=== PATIENT | male | born 1965 | race African-American/Black ===

== ENCOUNTER 2019-05-16 14:31 | Emergency (ER) | payer OTHER ==
[2019-05-16 15:20] VITALS: BP 112/78
--- NOTE | 2019-05-16 16:34 | UC ---
Skin Complaint HPI - HPI Summary HPI Summary: 54-year-old male comes in with a chief complaint of bleeding from a pacemaker wound site. Patient has a pacemaker AICD. He had the battery replaced on May 07, 2019. This is the third incision same site. Patient has keloid skin and has scar tissue build up at the area. After the battery placement patient developed a hematoma at the incision site. This is all done done in [place]. Patient reports the Them overnight because of the hematoma. The wound was covered with adhesive glue. Today patient noticed some blood on his shirt at the site. He has been working as an industrial electrician. Feels well otherwise. He reports that the hematoma today is much smaller than it was then right after the procedure. No fevers or chills. - History of Current Complaint Chief Complaint: UCSkin Time Seen by Provider: 05/16/19 16:09 Stated Complaint: BLEEDING ALONG SURGERY SITE Pain Intensity: 0 - Allergy/Home Medications Allergies/Adverse Reactions: Allergies Allergy/AdvReac Type Severity Reaction Status Date / Time No Known Allergies Allergy Verified 05/16/19 15:20 Home Medications: Home Medications Aspirin 81 mg CHEW TAB* [Aspirin Low Dose TAB*] 81 mg PO DAILY 05/16/19 [ History Confirmed 05/16/19] Atorvastatin* [Lipitor*] 80 mg PO DAILY 05/16/19 [History Confirmed 05/16/19] Clopidogrel TAB* [Plavix TAB*] 75 mg PO DAILY 05/16/19 [History Confirmed ] Lisinopril [Lisinopril 30 MG-] 30 mg PO DAILY 05/16/19 [History Confirmed ] Metoprolol Succinate 50 mg PO DAILY 05/16/19 [History Confirmed 05/16/19] Oxycodone HCl/Acetaminophen [Percocet 5-325 mg Tablet] 1 each PO Q6H PRN [History Confirmed 05/16/19] PMH/Surg Hx/FS Hx/Imm Hx Previously Healthy: Yes - AICD, ON PLAVIX AND ASPIRIN Cardiovascular History: Hypertension - Surgical History Surgical History: Yes Surgery Procedure, Year, and Place: pacer/aicd, femur repair - Family History Known Family History: Positive: Non-Contributory - Social History Alcohol Use: Daily Substance Use Type: None Smoking Status (MU): Never Smoked Tobacco Review of Systems All Other Systems Reviewed And Are Negative: Yes Constitutional: Positive: Negative Skin: Positive: Other - SEE HPI Eyes: Positive: Negative ENT: Positive: Negative Respiratory: Positive: Negative Cardiovascular: Positive: Negative Gastrointestinal: Positive: Negative Motor: Positive: Negative Neurovascular: Positive: Negative Musculoskeletal: Positive: Negative Neurological: Positive: Negative Psychological: Positive: Negative Is Patient Immunocompromised?: No Physical Exam Triage Information Reviewed: Yes Appearance: Well-Appearing, No Pain Distress, Well-Nourished Vital Signs: Initial Vital Signs Temp 99.4 F 05/16/19 15:14 Pulse 60 05/16/19 15:14 Resp 16 05/16/19 15:14 BP 112/78 05/16/19 15:14 Pulse Ox 100 05/16/19 15:14 Vital Signs Reviewed: Yes Eye Exam: Normal Neck: Positive: Supple Respiratory: Positive: No respiratory distress Musculoskeletal: Positive: Strength Intact, ROM Intact Neurological: Positive: Alert Psychological: Positive: Age Appropriate Behavior Skin: Positive: Other - There is subcutaneous swelling in the left upper chest consistent with hematoma. There is an incision site that is covered with adhesive glue. When I clean the area I found a site of blood seeping through the glue. I applied more adhesive glue. Course/Dx - Course Course Of Treatment: I glued the area of the blood leakage. On reevaluation is no further bleeding. We discussed that if this bleeds again he should use gauze and direct pressure. He should contact his surgeon to discuss with them about the bleeding. If the bleeding is worse at all he needs to be seen in the emergency department going by ambulance if needed. - Diagnoses Provider Diagnosis: Bleeding from open wound of chest wall Discharge - Sign-Out/Discharge Documenting (check all that apply): Patient Departure All imaging exams completed and their final reports reviewed: No Studies - Discharge Plan Condition: Stable Disposition: HOME Patient Education Materials: Skin Adhesive Care (ED) Referrals: [facility] [Outside] [facility] [Outside] Additional Instructions: FOLLOW UP WITH YOUR DOCTOR. APPLY GAUZE AND DIRECT PRESSURE WITH ANY BLEEDING. GO TO THE EMERGENCY DEPARTMENT IF YOUR CONDITION WORSENS OR ANY QUESTIONS OR CONCERNS. - Billing Disposition and Condition Condition: STABLE Disposition: Home
== END 2019-05-16 16:50 | disposition home or self-care (01) ==
LOC: UCEAST 14:31
DX: T81.31XA Disruption of external operation (surgical) wound, not elsewhere classified, initial encounter (principal); Y71.0 Diagnostic and monitoring cardiovascular devices associated with adverse incidents; Y83.8 Other surgical procedures as the cause of abnormal reaction of the patient, or of later complication, without mention of misadventure at the time of the procedure; Z79.82 Long term (current) use of aspirin; Z79.01 Long term (current) use of anticoagulants
CPT/HCPCS: 99201; G0463

== ENCOUNTER 2022-08-24 18:52 | Observation (INO) ==
[2022-08-24 19:34] LABS: ABS Eosinophils 0.1 10^3/ul (0-0.6); ABS Lymphocytes 2.3 10^3/ul (1.0-4.8); ABS Monocytes 0.6 10^3/ul (0-0.8); ABS Neutrophils 3.4 10^3/ul (1.5-7.7); Eosinophil % 1.4 %; Hematocrit 46 % (42-52); Mean Corpuscular HGB Conc 33 g/dL (31-36); Mean Corpuscular Hemoglobin 30 pg (27-31); Mean Corpuscular Volume 92 fL (80-94); Nucleated Red Blood Cells % 0.5; Platelet Count 149 10^3/uL (150-450); Red Blood Count 5.01 10^6 /uL (4.18-5.48); Red Cell Distribution Width 14 % (10-15); White Blood Count 6.5 10^3/uL (3.5-10.8)
[2022-08-24 20:10] LABS: Albumin 4.4 g/dL (3.2-5.2); Albumin/Globulin Ratio 1.2 (1-3); Calcium 9.9 mg/dL (8.6-10.3); Globulin 3.7 g/dL (2-4); Potassium 4.3 mmol/L (3.5-5.0); Total Bilirubin 0.9 mg/dL (0.2-1.0); Total Protein 8.1 g/dL (6.4-8.9); eGFR CKD-EPI 57.9 (>60)
[2022-08-24 20:55] LABS: Urine Benzodiazepine Screen None Detected (None Detect); Urine Cannabinoids Screen Presumptive Positive (None Detect); Urine Opiates Screen None Detected (None Detect)
[2022-08-24 20:58] LABS: High Sensitivity Troponin 1 Hr 48 pg/mL (<20)
[2022-08-24 21:00] LABS: Urine Appearance Clear; Urine Bilirubin Negative (Negative); Urine Blood 1+ (Negative); Urine Color Yellow; Urine Glucose Negative (Negative); Urine Ketones Negative (Negative); Urine Nitrite Negative (Negative); Urine Protein 1+(30 mg/dL) (Negative); Urine Urobilinogen Negative (Negative)
[2022-08-24 21:10] LABS: Urine Bacteria Absent (Absent); Urine Red Blood Cell Absent (Absent); Urine White Blood Cell Trace(0-5/hpf) (Absent)
[2022-08-24 21:14] LABS: INR 1.06 (0.89-1.11)
[2022-08-24 21:18] LABS: Magnesium 1.9 mg/dL (1.9-2.7)
[2022-08-24 21:33] LABS: TSH Ultra Thyroid Stim Horm 1.3 mcIU/mL (0.34-5.60)
[2022-08-25] MEDS ORDERED: Enoxaparin 40 MG/0.4 ML SYR SUBCUT ONE (01:38)
[2022-08-25 05:52] LABS: ABS Eosinophils 0.1 10^3/ul (0-0.6); ABS Lymphocytes 2.9 10^3/ul (1.0-4.8); ABS Monocytes 0.7 10^3/ul (0-0.8); ABS Neutrophils 2.3 10^3/ul (1.5-7.7); Eosinophil % 2.5 %; Hematocrit 45 % (42-52); Hemoglobin 14.2 g/dL (14.0-18.0); Lymphocyte % 48.1 %; Mean Corpuscular HGB Conc 32 g/dL (31-36); Mean Corpuscular Hemoglobin 30 pg (27-31); Mean Corpuscular Volume 92 fL (80-94); Mean Platelet Volume 9.9 fL (7.4-10.4); Nucleated Red Blood Cells % 0.1; Platelet Count 148 10^3/uL (150-450); Red Blood Count 4.83 10^6 /uL (4.18-5.48); Red Cell Distribution Width 14 % (10-15); White Blood Count 5.9 10^3/uL (3.5-10.8)
[2022-08-25 06:43] LABS: Calcium 9.3 mg/dL (8.6-10.3)
[2022-08-25 06:48] LABS: eGFR CKD-EPI 61.5 (>60)
[2022-08-25] MEDS ORDERED: Perflutren Lipid Microsphere 3 ML VIAL ONE (09:12)
[2022-08-25 17:42] VITALS: BP 153/95
== END 2022-08-25 17:40 | disposition home or self-care (01) ==
LOC: ED 18:52 → EDHOLD 18:52 → SUATTDRO 23:27 → EDHOLD 08-25 17:39
PROVIDERS: ADMIT Internal Medicine; ATTEND Hospitalist